=== PATIENT | male | born 1990 | race Caucasian/White ===

== ENCOUNTER 2024-11-01 13:50 | Emergency (ER) | payer BC, SELFPAY ==
[2024-11-01 14:06] VITALS: BP 141/92
--- NOTE | 2024-11-01 14:10 | ED.SKININJ ---
HPI-Injury
<Kirill Wei PA-C - Last Filed: 11/01/24 14:10>
General
Chief Complaint: Skin Surface Trauma
Time Seen by Provider: 11/01/24 14:31
<Leanne Holguin PA-C - Last Filed: 11/01/24 15:50>
General
Source: patient
Exam Limitations: none
Nursing documentation reviewed up to this point in time: agreed with
History of Present Illness-Injury
Initial Injury comments:
Patient is a 34-year-old male [id number] presents with a dog bite from his own dog who is vaccinated when he was playing with the dog. Patient says accidentally he smacked his hand on the dog's tooth when they were playing a game with a
toy. Patient has a laceration to the dorsal aspect of his right hand in the webspace between his thumb and index finger, he has no numbness tingling or weakness. He believes his tetanus shot is probably up-to-date. He has no pain.
ED Provider Triage
<Kirill Wei PA-C - Last Filed: 11/01/24 14:10>
-
Patient seen by provider in Triage?: Seen in Triage
34-year-old male with laceration to right hand starting today. He was playing with his dog and his dog tooth scraped across the top of his hand he noted a laceration. He believes his vaccines up-to-date. The dog's vaccines are up-to-date.
3 cm laceration noted to dorsal aspect right hand vital signs are stable patient likely needs some form of wound closure
Seen by provider in triage but warrants further assessment
Past History
<Leanne Holguin PA-C - Last Filed: 11/01/24 15:50>
Past History
ED Past Medical History: None
ED Past Surgical History: None
Social History
Tobacco: Non-smoker
Alcohol: None
Drug: None
Personal:
Living: with family
Employment: Employed
Review of Systems
<Leanne Holguin PA-C - Last Filed: 11/01/24 15:50>
Review of Systems
Allergies reviewed?: Yes
All Other Systems: Not applicable
Phy Exam
<Leanne Holguin PA-C - Last Filed: 11/01/24 15:50>
Physical Exam
Physical Exam:
GENERAL: Alert , in no apparent distress
CARDIAC: Regular rate and rhythm .
LUNGS: Clear breath sounds bilaterally, no acute respiratory distress, no wheezes/rales/rhonchi
NEUROLOGICAL: Alert and oriented, no focal neuro deficits
SKIN: Warm and dry,
4 cm linear laceration of the right dorsal hand in the webspace between the thumb and the index finger with full range of motion of the finger
MUSCULOSKELETAL: Hand laceration, not through the muscle, no tendons exposed, no bleeding
PSYCH: Normal and appropriate interaction.
Course
<Kirill Wei PA-C - Last Filed: 11/01/24 14:10>
Orders/Labs/Results
Orders:
Orders
11/01/24 15:19
Amoxicillin 875 mg/Clav 125 mg [Augmentin 875 mg/125 mg] 1 tablet PO NOW STA
Vital Signs
Initial and Last Documented VS:
Initial Vital Signs
Temp Pulse Resp BP Pulse Ox
36.6 C 83 16 141/92 98
11/01/24 14:06 11/01/24 14:06 11/01/24 14:06 11/01/24 14:06 11/01/24 14:06
Last Documented Vital Signs
Temp Pulse Resp BP Pulse Ox
36.6 C 83 16 141/92 98
11/01/24 14:06 11/01/24 14:06 11/01/24 14:06 11/01/24 14:06 11/01/24 14:06
<Leanne Holguin PA-C - Last Filed: 11/01/24 15:50>
Orders/Labs/Results
Orders:
Orders
11/01/24 15:19
Amoxicillin 875 mg/Clav 125 mg [Augmentin 875 mg/125 mg] 1 tablet PO NOW STA
Vital Signs
Initial and Last Documented VS:
Initial Vital Signs
Temp Pulse Resp BP Pulse Ox
36.6 C 83 16 141/92 98
11/01/24 14:06 11/01/24 14:06 11/01/24 14:06 11/01/24 14:06 11/01/24 14:06
Last Documented Vital Signs
Temp Pulse Resp BP Pulse Ox
36.6 C 83 16 141/92 98
11/01/24 14:06 11/01/24 14:06 11/01/24 14:06 11/01/24 14:06 11/01/24 14:06
Procedures
<Leanne Holguin PA-C - Last Filed: 11/01/24 15:50>
Laceration Closure
Right Hand:
Status of Wound: clean
Size of Wound in cm: 4
Description of Wound Edges: sharp and flap-well vascularized
Preparation: cleaned with saline and cleaned with SurClens
Anesthesia: 1% Lidocaine with epi
Revision/Debridement: minor revision and irrigate-direct pressure
Wound exploration: extensive cleaning of contaminated wound, explored to base- no FB and no tendon involvement
Type of Closure: single layer closure
Skin Closure Material: 5-0 nylon
Number of sutures: 2
Additional information:
2 loose sutures placed
<Leanne Holguin PA-C - Last Filed: 11/01/24 15:50>
MDM/Problems Addressed
Differential Diagnosis Includes:
dog bite laceration
MDM/Problems Addressed:
34-year-old [id number] male presents for dog bite laceration to his right dorsal hand, from his own dog accidentally when they were playing. Dogs vaccinated. Patient
Believes that his tetanus shot is up-to-date, he had his first child 2-1/2 years ago. He is going to confirm this with his family doctor. The meantime the wound was anesthetized and irrigated extensively and loosely approximated with 2 sutures on
either end and left open in the center, bacitracin nonstick dressing applied with an Carlos wrap, return precautions and wound care given, sutures out in 7 to 10 days
Augmentin
<Leanne Holguin PA-C - Last Filed: 11/01/24 15:50>
*Critical Care Note
Total Time (30-74mins, 75-104mins- exclusive of procedures): Not Applicable
ED Attending Note
<Kirill Wei PA-C - Last Filed: 11/01/24 14:10>
-
Portions of this chart may have been created with voice recognition software.� Occasional wrong word or��sound alike� substitutions may have occurred due to the inherent limitations of voice recognition software.
Discharge Plan
Departure
Patient Disposition: Home (Routine Discharge)
Date of Disposition: 11/01/24
Time of Disposition: 15:46
Patient with high blood pressure during this ER visit?: No
Condition: Fair
Covid-19: Not Applicable
Discharge Problem:
Laceration of hand, right, Dog bite
Instructions: Laceration Repair With Stitches (DC), Animal Bites ED
Prescriptions:
New
amoxicillin-pot clavulanate 875-125 mg tablet
1 tab PO BID Qty: 14 0RF
Activity Restrictions/Additional Instructions:
KEEP THE WOUND CLEAN AND DRY FOR 24 HOURS
AFTER THAT YOU CAN GET IT WET IN THE BATH/SHOWER ONCE A DAY AND MAKE SURE IT IS CLEAN AND THERE IS NO DRIED BLOOD ON THE STITCHES
APPLY NEOSPORIN AND A BANDAID
THE STITCHES NEED TO BE REMOVED IN ABOUT 7-10 DAYS, SEE YOUR DOCTOR FOR THIS.
THE LAST DAY BEFORE STITCHES OUT, NO OINTMENT, LEAVE OPEN TO AIR
WATCH FOR SIGNS OF INFECTION AND RETURN NEEDED FOR PAIN, SWELLING, REDNESS, DRAINAGE, BLEEDING.
MOTRIN NEEDED FOR PAIN.
Take Augmentin twice a day to help hopefully prevent infection
Interventions
Interventions:
*Risk Screen - Suicide Last Done: 11/01/24 14:06
*General Assessment Last Done: 11/01/24 15:15
*Neglect/Abuse Screening Last Done: 11/01/24 14:09
ED- Fall Risk Assessment Last Done: 11/01/24 15:11
*ED COVID-19 Vaccine History Last Done: 11/01/24 15:15
ED-Skin Assessment Last Done: 11/01/24 15:12
Discharge Date and Time
Print Language: ROMANSH
[2024-11-01 15:15] VITALS: BMI 24.4
[2024-11-01] MEDS: AUGMENTIN 875 MG/125 MG 1 TABLET PO (15:53)
== END 2024-11-01 16:01 | disposition home or self-care (01) ==
LOC: EMR 13:50
PROVIDERS: EMERGENCY PHYSICIAN Emergency Medicine; FAMILY PHYSICIAN Family Medicine
DX: S61.411A Laceration without foreign body of right hand, initial encounter (principal); W54.0XXA Bitten by dog, initial encounter
CPT/HCPCS: 12002; 99283